=== PATIENT | male | born 1990 | race Caucasian/White ===

== ENCOUNTER 2017-12-23 12:32 | Outpatient (CLI) | payer OTHER | END 2017-12-23 12:33 | disposition home or self-care (01) | LOC: BICMRI 12:32 | PROVIDERS: ATTEND Emergency Medicine Sports Medicine | DX: S39.012D Strain of muscle, fascia and tendon of lower back, subsequent encounter (principal); M51.36 Other intervertebral disc degeneration, lumbar region; M47.896 Other spondylosis, lumbar region; M47.897 Other spondylosis, lumbosacral region | CPT/HCPCS: 72148 ==